=== PATIENT | female | born 1975 | race Caucasian/White ===

== ENCOUNTER 2017-12-18 10:29 | Inpatient (IN) | payer OTHER ==
[~2017-12-18 10:29] MED LIST: Citric Acid/Sodium Citrate Solution 30 ML Cup PO SCH; Morphine PF 1 MG/ML Amp ONE; Octyl 2-Cyanoacrylate 1 Tube ONE; Ondansetron 4 MG/2 ML SDV ONE; Oxytocin 10 Units/1 ML SDV ONE; Oxytocin/0.9 % Sodium Chloride 30 UNIT/500 ML BAG IV SCH; Phenylephrine 1% 10 MG/ML SDV ONE; Sodium Chloride 0.9% 10 ML Syringe FLUSH PRN; Sodium Chloride 0.9% 2.5 ML Syringe FLUSH PRN; ceFAZolin 2 GM in Premix Bag 1 BAG IV ONE
[2017-12-18] MEDS ORDERED: ceFAZolin/Dextrose,Iso-Osmotic 2 GM/50 ML Duplex Bag IV ONE (10:50)
[2017-12-18] MEDS: Lactated Ringers 1,000 ML IV SCH ×2 (11:00→14:27)
--- NOTE | 2017-12-18 11:08 | PCM.PREANE ---
Preanesthetic Assessment - Procedure Proposed Procedure: , repeat; pre-eclamptic and diabetic - Anesthesia/Transfusion/Family Hx Anesthesia History: Prior Anesthesia Without Reaction Family History of Anesthesia Reaction: No Intubation History: Unknown - Review of Systems General: No Symptoms Pulmonary: Cough (sinus congestion, s/p Z-chace just completed (2 wks of URI)) Cardiovascular: Edema, Other (edematous LEs ) Neurological: Difficulty Walking ( and swollen legs) Other: Reports: Anxiety - Physical Assessment NPO Status Date: 12/18/17 NPO Status Time: 05:00 Height: 5 ft 3 in Weight: 199 lb ASA Class: 3E Mental Status: Alert & Oriented x3 Airway Class: Mallampati = 2 Dentition: Reports: Normal Dentition Thyro-Mental Finger Breadths: 3 Mouth Opening Finger Breadths: 3 ROM/Head Extension: Full Lungs: Clear to Auscultation, Normal Respiratory Effort Cardiovascular: Regular Rate, Regular Rhythm, No Murmurs - Lab Values: Laboratory Last Values WBC 7.37 K/uL (4.0-11.0) 12/18/17 10:50 RBC 4.15 M/uL (4.30-5.90) L 12/18/17 10:50 Hgb 11.7 g/dL (12.0-16.0) L 12/18/17 10:50 Hct 34.4 % (36.0-46.0) L 12/18/17 10:50 MCV 82.9 fL (80.0-98.0) 12/18/17 10:50 MCH 28.2 pg (27.0-32.0) 12/18/17 10:50 MCHC 34.0 g/dL (31.0-37.0) 12/18/17 10:50 RDW Std Deviation 43.5 fl (28.0-62.0) 12/18/17 10:50 RDW Coeff of Cassie 14 % (11.0-15.0) 12/18/17 10:50 Plt Count 197 K/uL (150-400) 12/18/17 10:50 MPV 10.60 fL (7.40-12.00) 12/18/17 10:50 Nucleated RBC % 0.0 /100WBC 12/18/17 10:50 Nucleated RBCs # 0 K/uL 12/18/17 10:50 - Allergies Allergies/Adverse Reactions: Allergies Allergy/AdvReac Type Severity Reaction Status Date / Time adhesive tape Allergy Blisters Verified 12/18/17 10:21 - Blood Blood Available: No Product(s) Available: PRBC (T and S) - Anesthesia Plan Pre-Op Medication Ordered: Antacids - Acknowledgements Anesthesia Type Planned: Spinal (discussed possible general) Pt an Appropriate Candidate for the Planned Anesthesia: Yes Alternatives and Risks of Anesthesia Discussed w Pt/Guardian: Yes Pt/Guardian Understands and Agrees with Anesthesia Plan: Yes PreAnesthesia Questionnaire Cardiovascular History: Reports: High Cholesterol, Other (See Below) Other Cardiovascular History: gestational hypertension 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: Endocrine/Metabolic History: Reports: Diabetes, Gestational - Past Surgical History Cardiovascular Surgical History: Reports: None Neurological Surgical History: Reports: None - CURRENT (IN HOUSE) MEDS Current Meds: Current Medications Citric Acid/Sodium Citrate (Bicitra Solution) 30 ml PO .ONCE ANGIE Last Admin: 12/18/17 11:00 Dose: 30 ml Lactated Ringer's (Ringers, Lactated) 1,000 mls @ 500 mls/hr IV .BOLUS ANGIE Last Admin: 12/18/17 11:00 Dose: 500 mls/hr Oxytocin/Sodium Chloride (Oxytocin 30 Unit/500 Ml-Ns) 30 unit in 500 mls @ 250 mls/hr IV TITRATE ANGIE Sodium Chloride (Saline Flush) 10 ml FLUSH ASDIRECTED PRN PRN Reason: Keep Vein Open Sodium Chloride (Saline Flush) 2.5 ml FLUSH ASDIRECTED PRN PRN Reason: Keep Vein Open Discontinued Medications Cefazolin Sodium/Dextrose (Ancef) Confirm Administered Dose 2 gm IV .STK-MED ONE Stop: 12/18/17 10:51 Cefazolin Sodium/Dextrose 2 gm (/ Premix) 50 mls @ 100 mls/hr IV ONETIME ONE Stop: 12/18/17 10:42 Morphine Sulfate (Duramorph Pf) Confirm Administered Dose 1 mg .ROUTE .STK-MED ONE Stop: 12/18/17 10:20 Octyl Cyanoacrylate (Dermabond Advance) Confirm Administered Dose 1 applic .ROUTE .STK-MED ONE Stop: 12/18/17 10:22 Ondansetron HCl (Zofran) Confirm Administered Dose 4 mg .ROUTE .STK-MED ONE Stop: 12/18/17 10:22 Oxytocin (Pitocin) Confirm Administered Dose 20 unit .ROUTE .STK-MED ONE Stop: 12/18/17 10:20 Phenylephrine HCl (Octavio-Synephrine) Confirm Administered Dose 10 mg .ROUTE .STK- MED ONE Stop: 12/18/17 10:20
[2017-12-18 11:39] LABS: CHLORIDE,CL 102 mmol/L (98-107); SODIUM,NA 136 mmol/L (136-145)
[2017-12-18] MEDS ORDERED: Propofol 200 MG/20 ML SDV ONE (12:13)
[2017-12-18] MEDS ORDERED: Nalbuphine 10 MG/1 ML Vial IVPUSH PRN (12:20)
[2017-12-18] MEDS ORDERED: Naloxone 0.4 MG/ML Syringe IVPUSH PRN (12:20)
[2017-12-18] MEDS ORDERED: diphenhydrAMINE 50 MG/ML SDV IVPUSH PRN ×2 (12:20→12:51)
[2017-12-18] MEDS ORDERED: Oxytocin 10 Units/1 ML SDV ONE (12:41)
[2017-12-18] MEDS ORDERED: Sodium Chloride 0.9% 2.5 ML Syringe FLUSH PRN (12:51)
[2017-12-18] MEDS ORDERED: Ondansetron 4 MG/2 ML SDV IV PRN (12:51)
[2017-12-18] MEDS ORDERED: Bisacodyl 10 MG Supp RECTAL PRN (12:51)
[2017-12-18] MEDS ORDERED: Sodium Chloride 0.9% 10 ML Syringe FLUSH PRN (12:51)
[2017-12-18] MEDS ORDERED: Labetalol 100 MG/20 ML MDV IVPUSH PRN (12:51)
[2017-12-18] MEDS ORDERED: Lanolin 100% Cream 7 GM Tube TOP PRN (12:51)
[2017-12-18] MEDS ORDERED: Ibuprofen 800 MG Tab PO PRN (12:51)
[2017-12-18] MEDS ORDERED: Aluminum Hydroxide/Magnesium Hydroxide/Simethicone Susp 30 ML Cup PO PRN (12:51)
[2017-12-18] MEDS ORDERED: Magnesium Sulfate/Water 4 GM in Premix Bag 1 BAG IV ONE (12:51)
[2017-12-18] MEDS ORDERED: Calcium Gluconate 10% 1 GM/10 ML SDV IV PRN (12:51)
[2017-12-18] MEDS ORDERED: Simethicone 80 MG Tab.Chew PO PRN (12:51)
[2017-12-18] MEDS ORDERED: Magnesium Sulfate/Water 40 GM/1,000 ML BAG IV SCH (13:00)
--- NOTE | 2017-12-18 13:17 | PCM.OPNOTE ---
- General Post-Op/Procedure Note Date of Surgery/Procedure: 12/18/17 Operative Procedure(s): Repeat LTCS. Bilateral salpingectomy Findings: Viable female AGPARs, 9, 9 weight 3460 gm. Intact placenta with 3 V cord, significant uterovesical adhesions. left paratubal cyst Pre Op Diagnosis: 37 week IUP. Severe gestational hypertension. Previous c section, desires repeat. Undesired fertility Post-Op Diagnosis: Same Anesthesia Technique: Spinal Primary Surgeon: Sarah Alcantara Pathology: placenta, fallopian tubes, left paratubal cyst Fluid Replacement, Intraop: 2,000 EBL in mLs: 800 Complications: none known Condition: Good Free Text/Narrative:: Intake & Output 12/17/17 12/18/17 12/18/17 22:59 06:59 14:59 Output Total 250 Balance -250 Dictation [id number]
[2017-12-18] MEDS: fentaNYL 100 MCG/2 ML SDV IVPUSH PRN ×3 (13:22→19:42)
--- NOTE | 2017-12-18 13:34 | PCM.POSTAN ---
POST ANESTHESIA ASSESSMENT - MENTAL STATUS Mental Status: Alert, Oriented - VITAL SIGNS Pulse Rate: 48 SaO2: 100 (2 l/m) Resp Rate: 11 Blood Pressure: 145/63 - RESPIRATORY Respiratory Status: Respiratory Rate WNL, Airway Patent, O2 Saturation Stable - CARDIOVASCULAR CV Status: Pulse Rate WNL, Blood Pressure Stable - GASTROINTESTINAL GI Status: No Symptoms - PAIN Pain Score: 4 (some narcotic used ) - POST OP HYDRATION Hydration Status: Adequate & Stable - OBSERVATIONS Free Text/Narrative:: see neuroaxis orders. Per surgeon - will give Mg for 24 hours.
--- NOTE | 2017-12-18 16:24 | PCM48HPAN ---
Post Anesthesia Note - EVALUATION WITHIN 48HRS OF ANESTHETIC Vital Signs in Normal Range: Yes Patient Participated in Evaluation: Yes Respiratory Function Stable: Yes Airway Patent: Yes Cardiovascular Function Stable: Yes Hydration Status Stable: Yes Pain Control Satisfactory: Yes Nausea and Vomiting Control Satisfactory: Yes Mental Status Recovered: Yes Pulse Rate: 48 Resp Rate: 15 Blood Pressure: 145/63
[2017-12-18] MEDS: Docusate Sodium 100 MG Cap PO SCH (21:01)
[2017-12-19] MEDS: fentaNYL 100 MCG/2 ML SDV IVPUSH PRN (01:16)
[2017-12-19] MEDS ORDERED: Acetaminophen 1,000 MG in Premix Bag 1 BAG IV ONE (04:13)
[2017-12-19] MEDS ORDERED: Sodium Chloride 0.65% Nasal Spray 45 ML Bottle NAS PRN (05:07)
[2017-12-19] MEDS ORDERED: Dextrose 5%-Lactated Ringers 1,000 ML IV SCH (06:00)
--- NOTE | 2017-12-19 06:31 | PCM.PNPP ---
- General Info Date of Service: 12/19/17 Admission Dx/Problem (Free Text): 42 yo P3 s/p Tertiary and bilateral salphingectomy Subjective Update: Informed patient had an episode of difficulty in breathing , RR ; 9 , Osaturation in the 80s , however patient informed to take deep breaths Osat 95% , at bedside Osat 98% ( during my evaluation) , RR 10 . Patient complains of stuffy nose and feels the abdominal binder is preventing her from taking deep breathes. abdominal binder. Magnessium held. CXR ordered VSS: BP 120s - 140s/60s - 70s , HR; 80s - 110s U/O: 35 - 90s/ hr , DTR: 2+ Functional Status: Reports: Pain Controlled - Review of Systems General: Reports: No Symptoms HEENT: Reports: No Symptoms Pulmonary: Reports: Shortness of Breath Cardiovascular: Reports: No Symptoms Gastrointestinal: Reports: No Symptoms Genitourinary: Reports: No Symptoms Musculoskeletal: Reports: No Symptoms Skin: Reports: No Symptoms Neurological: Reports: No Symptoms Psychiatric: Reports: No Symptoms - General Info Date of Service: 12/19/17 - Patient Data Vital Signs - Most Recent: Last Vital Signs Temp 37.0 C 12/18/17 19:00 Pulse 110 H 12/19/17 01:00 Resp 14 12/19/17 01:00 BP 130/72 12/19/17 01:00 Pulse Ox 91 L 12/19/17 01:00 Weight - Most Recent: 90.265 kg I&O - Last 24 Hours: Intake & Output 12/18/17 12/18/17 12/19/17 14:59 22:59 06:59 Intake Total 4250 100 Output Total 320 350 Balance 3930 -250 Lab Results - Last 24 Hours: Laboratory Results - last 24 hr 12/18/17 12/18/17 12/18/17 Range/Units 10:50 10:50 10:50 WBC 7.37 (4.0-11.0) K/uL RBC 4.15 L (4.30-5.90) M/uL Hgb 11.7 L (12.0-16.0) g/dL Hct 34.4 L (36.0-46.0) % MCV 82.9 (80.0-98.0) fL MCH 28.2 (27.0-32.0) pg MCHC 34.0 (31.0-37.0) g/dL RDW Std Deviation 43.5 (28.0-62.0) fl RDW Coeff of Cassie 14 (11.0-15.0) % Plt Count 197 (150-400) K/uL MPV 10.60 (7.40-12.00) fL Nucleated RBC % 0.0 /100WBC Nucleated RBCs # 0 K/uL Cord ABG pH (7.18-7.38) Cord ABG Base Excess (-10--2) Cord VBG pH (7.25-7.45) Cord VBG Base Excess (-10--2) Sodium 136 (136-145) mmol/L Potassium 3.8 (3.5-5.1) mmol/L Chloride 102 (98-107) mmol/L Carbon Dioxide 22.3 (21.0-32.0) mmol/L BUN 12 (7.0-18.0) mg/dL Creatinine 0.7 (0.6-1.0) mg/dL Est Cr Clr Drug Dosing 88.37 mL/min Estimated GFR (MDRD) > 60.0 ml/min Glucose 97 (74-106) mg/dL POC Glucose (60-110) mg/dL Calcium 9.2 (8.5-10.1) mg/dL Magnesium (1.5-2.0) mg/dL Total Bilirubin 0.2 (0.2-1.0) mg/dL AST 32 (15-37) IU/L ALT 28 (14-63) IU/L Alkaline Phosphatase 127 H (46-116) U/L Total Protein 6.6 (6.4-8.2) g/dL Albumin 2.7 L (3.4-5.0) g/dL Globulin 3.9 H (2.0-3.5) g/dL Albumin/Globulin Ratio 0.7 L (1.3-2.8) Blood Type A POSITIVE Antibody Screen NEGATIVE 12/18/17 12/18/17 12/18/17 Range/Units 11:04 11:39 19:15 WBC (4.0-11.0) K/uL RBC (4.30-5.90) M/uL Hgb (12.0-16.0) g/dL Hct (36.0-46.0) % MCV (80.0-98.0) fL MCH (27.0-32.0) pg MCHC (31.0-37.0) g/dL RDW Std Deviation (28.0-62.0) fl RDW Coeff of Cassie (11.0-15.0) % Plt Count (150-400) K/uL MPV (7.40-12.00) fL Nucleated RBC % /100WBC Nucleated RBCs # K/uL Cord ABG pH 7.286 (7.18-7.38) Cord ABG Base Excess 0 H (-10--2) Cord VBG pH 7.347 (7.25-7.45) Cord VBG Base Excess 0 H (-10--2) Sodium (136-145) mmol/L Potassium (3.5-5.1) mmol/L Chloride (98-107) mmol/L Carbon Dioxide (21.0-32.0) mmol/L BUN (7.0-18.0) mg/dL Creatinine (0.6-1.0) mg/dL Est Cr Clr Drug Dosing mL/min Estimated GFR (MDRD) ml/min Glucose (74-106) mg/dL POC Glucose 89 (60-110) mg/dL Calcium (8.5-10.1) mg/dL Magnesium 3.9 H (1.5-2.0) mg/dL Total Bilirubin (0.2-1.0) mg/dL AST (15-37) IU/L ALT (14-63) IU/L Alkaline Phosphatase (46-116) U/L Total Protein (6.4-8.2) g/dL Albumin (3.4-5.0) g/dL Globulin (2.0-3.5) g/dL Albumin/Globulin Ratio (1.3-2.8) Blood Type Antibody Screen 12/19/17 Range/Units 01:08 WBC (4.0-11.0) K/uL RBC (4.30-5.90) M/uL Hgb (12.0-16.0) g/dL Hct (36.0-46.0) % MCV (80.0-98.0) fL MCH (27.0-32.0) pg MCHC (31.0-37.0) g/dL RDW Std Deviation (28.0-62.0) fl RDW Coeff of Cassie (11.0-15.0) % Plt Count (150-400) K/uL MPV (7.40-12.00) fL Nucleated RBC % /100WBC Nucleated RBCs # K/uL Cord ABG pH (7.18-7.38) Cord ABG Base Excess (-10--2) Cord VBG pH (7.25-7.45) Cord VBG Base Excess (-10--2) Sodium (136-145) mmol/L Potassium (3.5-5.1) mmol/L Chloride (98-107) mmol/L Carbon Dioxide (21.0-32.0) mmol/L BUN (7.0-18.0) mg/dL Creatinine (0.6-1.0) mg/dL Est Cr Clr Drug Dosing mL/min Estimated GFR (MDRD) ml/min Glucose (74-106) mg/dL POC Glucose (60-110) mg/dL Calcium (8.5-10.1) mg/dL Magnesium 4.5 H (1.5-2.0) mg/dL Total Bilirubin (0.2-1.0) mg/dL AST (15-37) IU/L ALT (14-63) IU/L Alkaline Phosphatase (46-116) U/L Total Protein (6.4-8.2) g/dL Albumin (3.4-5.0) g/dL Globulin (2.0-3.5) g/dL Albumin/Globulin Ratio (1.3-2.8) Blood Type Antibody Screen Med Orders - Current: Current Medications Al Hydroxide/Mg Hydroxide (Mag-Al Plus) 30 ml PO Q8H PRN PRN Reason: Heartburn Bisacodyl (Dulcolax) 10 mg RECTAL .ONCE PRN PRN Reason: Constipation Calcium Gluconate (Calcium Gluconate) 1 gm IV ASDIRECTED PRN PRN Reason: respiratory distress Citric Acid/Sodium Citrate (Bicitra Solution) 30 ml PO .ONCE ANGIE Last Admin: 12/18/17 11:00 Dose: 30 ml Diphenhydramine HCl (Benadryl) 25 - 50 mg IVPUSH Q4H PRN PRN Reason: Itching Stop: 12/19/17 12:20 Diphenhydramine HCl (Benadryl) 25 mg IVPUSH Q6H PRN PRN Reason: Itching or Nausea Docusate Sodium (Colace) 100 mg PO BID ANGIE Last Admin: 12/18/17 21:01 Dose: 100 mg Emollient Ointment (Lansinoh Hpa) 0 gm TOP ASDIRECTED PRN PRN Reason: Sore Nipples Last Admin: 12/18/17 16:40 Dose: 1 applic Fentanyl (Sublimaze) 50 - 100 mcg IVPUSH Q30M PRN PRN Reason: Breakthrough Pain Stop: 12/19/17 12:16 Last Admin: 12/19/17 01:16 Dose: 50 mcg Lactated Ringer's (Ringers, Lactated) 1,000 mls @ 500 mls/hr IV .BOLUS ANGIE Last Admin: 12/18/17 14:27 Dose: 500 mls/hr Oxytocin/Sodium Chloride (Oxytocin 30 Unit/500 Ml-Ns) 30 unit in 500 mls @ 250 mls/hr IV TITRATE ANGIE Magnesium Sulfate (Magnesium Sulfate 40 Gm In Water 1000 Ml) 40 gm in 1,000 mls @ 50 mls/hr IV ASDIRECTED [facility]; Protocol Last Admin: 12/18/17 14:44 Dose: 2 gm/hr, 50 mls/hr Dextrose/Lactated Ringer's (Dextrose 5%-Lactated Ringers) 1,000 mls @ 100 mls/ hr IV ASDIRECTED [facility] Last Admin: 12/19/17 06:14 Dose: 100 mls/hr Ibuprofen (Motrin) 800 mg PO Q8H PRN PRN Reason: mild pain or fever Labetalol HCl (Normodyne) 20 mg IVPUSH Q10M PRN; Protocol PRN Reason: Hypertension Nalbuphine HCl (Nubain) 2.5 - 10 mg IVPUSH Q3H PRN PRN Reason: Pruritis Stop: 12/19/17 12:20 Naloxone HCl (Narcan) 0.1 mg IVPUSH ONETIME PRN PRN Reason: Respiratory Depression Stop: 12/19/17 12:20 Ondansetron HCl (Zofran) 4 mg IV Q4H PRN PRN Reason: Nausea/Vomiting Oxycodone/Acetaminophen (Percocet 325-5 Mg) 1 - 2 tab PO Q4H PRN PRN Reason: Breakthrough Pain Stop: 12/19/17 12:30 Simethicone (Simethicone) 80 mg PO Q4H PRN PRN Reason: Gas Sodium Chloride (Saline Flush) 10 ml FLUSH ASDIRECTED PRN PRN Reason: Keep Vein Open Sodium Chloride (Saline Flush) 2.5 ml FLUSH ASDIRECTED PRN PRN Reason: Keep Vein Open Sodium Chloride (Saline Flush) 10 ml FLUSH ASDIRECTED PRN PRN Reason: Keep Vein Open Sodium Chloride (Saline Flush) 2.5 ml FLUSH ASDIRECTED PRN PRN Reason: Keep Vein Open Sodium Chloride (Ness Nasal [place]) 1 ml RADHA Q2H PRN PRN Reason: Congestion Last Admin: 12/19/17 06:07 Dose: 1 ml Discontinued Medications Cefazolin Sodium/Dextrose (Ancef) Confirm Administered Dose 2 gm IV .STK-MED ONE Stop: 12/18/17 10:51 Cefazolin Sodium/Dextrose 2 gm (/ Premix) 50 mls @ 100 mls/hr IV ONETIME ONE Stop: 12/18/17 10:42 Last Admin: 12/18/17 15:35 Dose: Not Given Magnesium Sulfate 4 gm/ Premix 100 mls @ 300 mls/hr IV .BOLUS ONE Stop: 12/18/17 13:10 Last Admin: 12/18/17 14:27 Dose: 400 mls/hr Acetaminophen 1,000 mg/ Premix 100 mls @ 400 mls/hr IV NOW ONE Stop: 12/19/17 04:27 Last Admin: 12/19/17 04:50 Dose: 400 mls/hr Morphine Sulfate (Duramorph Pf) Confirm Administered Dose 1 mg .ROUTE .STK-MED ONE Stop: 12/18/17 10:20 Octyl Cyanoacrylate (Dermabond Advance) Confirm Administered Dose 1 applic .ROUTE .STK-MED ONE Stop: 12/18/17 10:22 Ondansetron HCl (Zofran) Confirm Administered Dose 4 mg .ROUTE .STK-MED ONE Stop: 12/18/17 10:22 Oxytocin (Pitocin) Confirm Administered Dose 20 unit .ROUTE .STK-MED ONE Stop: 12/18/17 10:20 Oxytocin (Pitocin) Confirm Administered Dose 20 unit .ROUTE .STK-MED ONE Stop: 12/18/17 12:42 Phenylephrine HCl (Octavio-Synephrine) Confirm Administered Dose 10 mg .ROUTE .STK- MED ONE Stop: 12/18/17 10:20 Propofol (Diprivan 20 Ml) Confirm Administered Dose 200 mg .ROUTE .STK-MED ONE Stop: 12/18/17 12:14 - Infant Interaction Disposition, : [place] to Nursery - Recovery Exam Fundal Tone: Firm Fundal Level: 1 Fingerbreadths Above Umbilicus Fundal Placement: Midline Lochia Amount: Scant Lochia Color: Rubra/Red Perineum Description: Intact, Minimal Bruising/Swelling Episiotomy/Laceration: None Bladder Status: Indwelling Catheter in Place Urinary Elimination: Indwelling Catheter - Exam General: Alert, Oriented HEENT: Pupils Equal Neck: Supple Lungs: Clear to Auscultation Cardiovascular: Regular Rate, Regular Rhythm GI/Abdominal Exam: Normal Bowel Sounds Extremities: Normal Inspection Wound/Incisions: Other (pfannestiel skin incision with dressing in place , 11/22 stained , will change this AM ) Psy/Mental Status: Alert - Problem List & Annotations (1) delivery delivered SNOMED Code(s): 155143547 Code(s): O82 - ENCOUNTER FOR DELIVERY WITHOUT INDICATION Status: Acute Current Visit: Yes - Problem List Review Problem List Initiated/Reviewed/Updated: Yes - My Orders Last 24 Hours: My Active Orders 12/19/17 03:43 Chest 2V [CR] Stat 12/19/17 05:07 Sodium Chloride 0.65% [Ness Nasal [place]] 1 ml RADHA Q2H PRN 12/19/17 06:00 Dextrose 5%-Lactated Ringers 1,000 ml IV ASDIRECTED - Assessment Assessment:: 42 yo P3 s/p tertiary , SOB - resolved now , VSS - wnl , normal lochia - Plan Plan:: IVF D/5 LR at 100cc/hr Pain control as needed CBC / BMP this am Monitor vital signs Follow chest xray results Clear diet this am D/C magnessium for now
[2017-12-19] MEDS: Acetaminophen/oxyCODONE 325-5 MG Tab PO PRN ×3 (06:43→20:23)
[2017-12-19] MEDS: Levothyroxine 25 MCG Tab PO SCH (08:08)
[2017-12-19] MEDS: Docusate Sodium 100 MG Cap PO SCH ×2 (09:08→20:22)
[2017-12-19] MEDS ORDERED: Acetaminophen/oxyCODONE 325-5 MG Tab PO PRN (15:07)
[2017-12-19] MEDS ORDERED: Acetaminophen 325 MG Tab PO PRN (15:12)
[2017-12-20] MEDS ORDERED: Acetaminophen/oxyCODONE 325-5 MG Tab PO SCH
[2017-12-20] MEDS: Acetaminophen/oxyCODONE 325-5 MG Tab PO PRN ×3 (04:35→13:21)
[2017-12-20] MEDS: Levothyroxine 25 MCG Tab PO SCH (07:31)
[2017-12-20] MEDS: Docusate Sodium 100 MG Cap PO SCH (08:57)
--- NOTE | 2017-12-20 11:20 | PCM.PNPP ---
- General Info Date of Service: 12/20/17 Admission Dx/Problem (Free Text): 42 yo P3 s/p Tertiary and bilateral salphingectomy, with Gestational HTN s/p magnessium for approx 12 hrs Subjective Update: Patient seen at bedside Bps 130s/70s- 80s , denies headache , BV , RUQ pain . She wants to go home she states she have a BP monitor at home and her last preclampsia happens after 5 days. she also states her sister that is a nurse is going into town. she feel very well and will call the hospital if she takes her BP and the range is high. She understands the warning signs of preclampsia and will alert us if anything happens Functional Status: Reports: Pain Controlled, Tolerating Diet, Ambulating, Urinating - Review of Systems General: Reports: No Symptoms HEENT: Reports: No Symptoms Pulmonary: Reports: No Symptoms Cardiovascular: Reports: No Symptoms Gastrointestinal: Reports: No Symptoms Genitourinary: Reports: No Symptoms Musculoskeletal: Reports: No Symptoms Skin: Reports: No Symptoms Neurological: Reports: No Symptoms Psychiatric: Reports: No Symptoms - General Info Date of Service: 12/20/17 - Patient Data Vital Signs - Most Recent: Last Vital Signs Temp 36.1 C 12/20/17 08:00 Pulse 88 12/20/17 08:00 Resp 14 12/20/17 08:00 BP 138/67 12/20/17 08:00 Pulse Ox 97 12/20/17 08:00 Weight - Most Recent: 90.265 kg Med Orders - Current: Current Medications Acetaminophen (Tylenol) 650 mg PO Q6H PRN PRN Reason: Pain (moderate 4-6) Al Hydroxide/Mg Hydroxide (Mag-Al Plus) 30 ml PO Q8H PRN PRN Reason: Heartburn Bisacodyl (Dulcolax) 10 mg RECTAL .ONCE PRN PRN Reason: Constipation Calcium Gluconate (Calcium Gluconate) 1 gm IV ASDIRECTED PRN PRN Reason: respiratory distress Citric Acid/Sodium Citrate (Bicitra Solution) 30 ml PO .ONCE ANGIE Last Admin: 12/18/17 11:00 Dose: 30 ml Diphenhydramine HCl (Benadryl) 25 mg IVPUSH Q6H PRN PRN Reason: Itching or Nausea Docusate Sodium (Colace) 100 mg PO BID ANGIE Last Admin: 12/20/17 08:57 Dose: 100 mg Emollient Ointment (Lansinoh Hpa) 0 gm TOP ASDIRECTED PRN PRN Reason: Sore Nipples Last Admin: 12/18/17 16:40 Dose: 1 applic Lactated Ringer's (Ringers, Lactated) 1,000 mls @ 500 mls/hr IV .BOLUS [facility] Last Admin: 12/18/17 14:27 Dose: 500 mls/hr Oxytocin/Sodium Chloride (Oxytocin 30 Unit/500 Ml-Ns) 30 unit in 500 mls @ 250 mls/hr IV TITRATE [facility] Magnesium Sulfate (Magnesium Sulfate 40 Gm In Water 1000 Ml) 40 gm in 1,000 mls @ 50 mls/hr IV ASDIRECTED [facility]; Protocol Last Admin: 12/18/17 14:44 Dose: 2 gm/hr, 50 mls/hr Dextrose/Lactated Ringer's (Dextrose 5%-Lactated Ringers) 1,000 mls @ 100 mls/ hr IV ASDIRECTED [facility] Last Admin: 12/19/17 06:14 Dose: 100 mls/hr Ibuprofen (Motrin) 800 mg PO Q8H PRN PRN Reason: mild pain or fever Last Admin: 12/19/17 16:27 Dose: 800 mg Labetalol HCl (Normodyne) 20 mg IVPUSH Q10M PRN; Protocol PRN Reason: Hypertension Levothyroxine Sodium (Levothyroxine) 25 mcg PO ACBREAKFAST [facility] Last Admin: 12/20/17 07:31 Dose: 25 mcg Ondansetron HCl (Zofran) 4 mg IV Q4H PRN PRN Reason: Nausea/Vomiting Oxycodone/Acetaminophen (Percocet 325-5 Mg) 1 tab PO Q4H PRN PRN Reason: Pain (moderate 4-6) Last Admin: 12/19/17 15:31 Dose: 1 tab Oxycodone/Acetaminophen (Percocet 325-5 Mg) 2 tab PO Q4H PRN PRN Reason: Pain (severe 7-10) Last Admin: 12/20/17 08:58 Dose: 2 tab Simethicone (Simethicone) 80 mg PO Q4H PRN PRN Reason: Gas Sodium Chloride (Saline Flush) 10 ml FLUSH ASDIRECTED PRN PRN Reason: Keep Vein Open Sodium Chloride (Saline Flush) 2.5 ml FLUSH ASDIRECTED PRN PRN Reason: Keep Vein Open Sodium Chloride (Saline Flush) 10 ml FLUSH ASDIRECTED PRN PRN Reason: Keep Vein Open Sodium Chloride (Saline Flush) 2.5 ml FLUSH ASDIRECTED PRN PRN Reason: Keep Vein Open Sodium Chloride ([place] Nasal [place]) 1 ml RADHA Q2H PRN PRN Reason: Congestion Last Admin: 12/19/17 06:07 Dose: 1 ml Discontinued Medications Cefazolin Sodium/Dextrose (Ancef) Confirm Administered Dose 2 gm IV .STK-MED ONE Stop: 12/18/17 10:51 Diphenhydramine HCl (Benadryl) 25 - 50 mg IVPUSH Q4H PRN PRN Reason: Itching Stop: 12/19/17 12:20 Fentanyl (Sublimaze) 50 - 100 mcg IVPUSH Q30M PRN PRN Reason: Breakthrough Pain Stop: 12/19/17 12:16 Last Admin: 12/19/17 01:16 Dose: 50 mcg Cefazolin Sodium/Dextrose 2 gm (/ Premix) 50 mls @ 100 mls/hr IV ONETIME ONE Stop: 12/18/17 10:42 Last Admin: 12/18/17 15:35 Dose: Not Given Magnesium Sulfate 4 gm/ Premix 100 mls @ 300 mls/hr IV .BOLUS ONE Stop: 12/18/17 13:10 Last Admin: 12/18/17 14:27 Dose: 400 mls/hr Acetaminophen 1,000 mg/ Premix 100 mls @ 400 mls/hr IV NOW ONE Stop: 12/19/17 04:27 Last Admin: 12/19/17 04:50 Dose: 400 mls/hr Morphine Sulfate (Duramorph Pf) Confirm Administered Dose 1 mg .ROUTE .STK-MED ONE Stop: 12/18/17 10:20 Nalbuphine HCl (Nubain) 2.5 - 10 mg IVPUSH Q3H PRN PRN Reason: Pruritis Stop: 12/19/17 12:20 Naloxone HCl (Narcan) 0.1 mg IVPUSH ONETIME PRN PRN Reason: Respiratory Depression Stop: 12/19/17 12:20 Octyl Cyanoacrylate (Dermabond Advance) Confirm Administered Dose 1 applic .ROUTE .STK-MED ONE Stop: 12/18/17 10:22 Ondansetron HCl (Zofran) Confirm Administered Dose 4 mg .ROUTE .STK-MED ONE Stop: 12/18/17 10:22 Oxycodone/Acetaminophen (Percocet 325-5 Mg) 1 - 2 tab PO Q4H PRN PRN Reason: Breakthrough Pain Stop: 12/19/17 12:30 Last Admin: 12/19/17 11:06 Dose: 1 tab Oxytocin (Pitocin) Confirm Administered Dose 20 unit .ROUTE .STK-MED ONE Stop: 12/18/17 10:20 Oxytocin (Pitocin) Confirm Administered Dose 20 unit .ROUTE .STK-MED ONE Stop: 12/18/17 12:42 Phenylephrine HCl (Octavio-Synephrine) Confirm Administered Dose 10 mg .ROUTE .STK- MED ONE Stop: 12/18/17 10:20 Propofol (Diprivan 20 Ml) Confirm Administered Dose 200 mg .ROUTE .STK-MED ONE Stop: 12/18/17 12:14 - Infant Interaction Infant Disposition, : [place] to Nursery - Recovery Exam Fundal Tone: Firm Fundal Level: 1 Fingerbreadths Below Umbilicus Fundal Placement: Midline Lochia Amount: Scant Lochia Color: Rubra/Red Perineum Description: Intact, Minimal Bruising/Swelling Episiotomy/Laceration: None Bladder Status: Nonpalpable, Voiding Urinary Elimination: Indwelling Catheter - Exam General: Alert, Oriented HEENT: Pupils Equal Neck: Supple Lungs: Clear to Auscultation Cardiovascular: Regular Rate, Regular Rhythm GI/Abdominal Exam: Normal Bowel Sounds Extremities: Normal Inspection Skin: Other Wound/Incisions: Healing Well (Pfannestiel skin incision c/di ) Neurological: No New Focal Deficit Psy/Mental Status: Alert - Problem List & Annotations (1) delivery delivered SNOMED Code(s): 017009907 Code(s): O82 - ENCOUNTER FOR DELIVERY WITHOUT INDICATION Status: Acute Current Visit: Yes - Problem List Review Problem List Initiated/Reviewed/Updated: Yes - My Orders Last 24 Hours: My Active Orders 12/19/17 15:07 Acetaminophen/oxyCODONE [Percocet 325-5 MG] 1 tab PO Q4H PRN 12/19/17 15:12 Acetaminophen [Tylenol] 650 mg PO Q6H PRN 12/19/17 19:38 Acetaminophen/oxyCODONE [Percocet 325-5 MG] 2 tab PO Q4H PRN 12/19/17 Lunch Regular Diet [DIET] - Assessment Assessment:: 42 yo P3 s/p tertiary , salphingection , gestational HTN stable , Normal lochia , - Plan Plan:: Discharge home today as per patients request Pain control with Mortin/ Percocet Monitor BPs at home every 8 hrs If elevated BP 150/105 please call L& D
--- NOTE | 2017-12-21 06:26 | OR ---
SURGEON: Sarah Alcantara M.D. DATE OF PROCEDURE: 12/08/2017 PREOPERATIVE DIAGNOSES: 1. 37 weeks intrauterine . 2. Severe gestational hypertension. 3. Previous section, desires repeat. 4. Undesired fertility. POSTOPERATIVE DIAGNOSES: 1. 37 weeks intrauterine . 2. Severe gestational hypertension. 3. Previous section, desires repeat. 4. Undesired fertility. PROCEDURES: Repeat low-transverse section with bilateral salpingectomy. ANESTHESIA: Spinal. ESTIMATED BLOOD LOSS: 800 mL. FLUIDS: 2000 mL crystalloid. COMPLICATIONS: None known. FINDINGS: Viable female. score 9 at 1 minute, 9 at 5 minutes. Weight of 3450 g. Intact placenta, 3-vessel cord. Normal-appearing bilateral fallopian tubes. Left paratubal cyst. Significant uterovesical adhesions noted. DISPOSITION: The patient to PACU for magnesium recovery. Infant nursery. PROCEDURE IN DETAIL: Sabiha is a 42-year-old, G3, P2 at 37 weeks gestational age, who presents to clinic this morning after being evaluated in Labor and Delivery last night and found to be hypertensive. In the clinic today, her blood pressure was 162/88. She does have a headache, she does have a history of preeclampsia. has been complicated by advanced maternal age, polyhydramnios, gestational diabetes, and now developing gestational hypertension. Given term gestation and history of preeclampsia with significant rise in her blood pressure over the past week, I feel it is best to proceed with delivery. The patient is in agreement. Risks of section have been discussed with her. Proper consent obtained. The patient no longer desires fertility. She has signed consent for bilateral salpingectomy. This request has been approved by the [facility] ethics committee The patient was taken to the operating room, where she underwent a spinal anesthetic, was placed in the dorsal supine position with left tilt. SCDs to lower extremities. [place] to gravity. She was prepped and draped in usual sterile fashion. She received Ancef 2 g prophylactically. After being prepped and draped in the usual sterile fashion, anesthesia was tested found be adequate. Time-out had been performed. A previous Pfannenstiel skin incision was performed, incision carried down level of the rectus fascia, which was incised in the midline and lateralized on either side sharply and bluntly. The superior aspect of fascia was tented upward, dissected sharply and bluntly from underlying muscles. In a similar fashion, this was performed with the inferior aspect of fascia of rectus muscle in midline. Peritoneum was entered and the retroperitoneum was lateralized bluntly to a degree, but there was significant uterovesical adhesions, therefore sharp adhesiolysis was performed. I was able to palpate the uterine and position at this juncture. Self-retaining retractor gently placed. There were still significant amount of uterovesical adhesions, these were lysed sharply and bladder was ultimately able to be mobilized away from the lower uterine segment. There was quite a bit of raw adhesed surface area with this mobility. Low-transverse hysterotomy was now performed. Uterine cavity was entered with the blunt end of the scalpel. Uterine hysterotomy was lateralized. The head flexed and delivered from the pelvis. Fundal pressure was applied. The head was delivered followed by anterior shoulder, posterior shoulder, remaining body without difficulty. There was a nuchal cord present that was reduced manually. The infant's oropharynx and nares bulb suctioned. Cord clamped x2 and cut. Infant was handed off to attending physician Dr. Aponte. Cord arterial, cord venous, cord blood samples obtained. Placenta was now delivered. Uterine cavity was cleared of all blood clot and debris. Hysterotomy was repaired using 0 Vicryl in a continuous running fashion followed by re-imbricating layer. Area of bleeding along the left midline was re- plicated with two [id number] sutures. Hemostasis thereafter improved. There was still raw surface area along the posterior aspect of the bladder in the anterior lower uterine segment. Pressure was placed on this region and attention was now turned to performing the bilateral salpingectomy. The left fallopian tube was able to be isolated with Rudy clamp. There was quite a bit of ovarian tubal adhesions noted and these were gently lysed with cautery. The Harmonic Adams was now utilized to perform salpingectomy on the left side. The specimen will be sent to pathology. There was also a left paratubal cyst noted, this was also removed as well and sent to pathology. The region was well irrigated suction dried. Hemostasis inspected, found to be hemostatic. Attention was now turned to perform the right salpingectomy. Once again, there were tubal ovarian adhesions noted, these were gently lysed using Harmonic Adams. Salpingectomy was once performed once again, however, it is noted at this juncture that the Adams did not seal along the salpingectomy line nearly as well and continued to bleed and have some oozing. Initially I attempted to over-sew the region with a 3-0 chromic on a V20 needle. However, hemostasis was not obtained, therefore used medium-sized vascular clips along this incision line. Hemostasis thereafter evident. This region was well irrigated and suction dried. The uterus was returned to abdominal cavity. The salpingectomy sites were once again inspected and were found to be hemostatic. Attention was now returned to inspecting the hysterotomy. Areas of oozing along the posterior aspect of the bladder were inspected. Small areas of perforating vessels were cauterized. The region of vascularity is oversewn with 2 figure-of - eight sutures using 3-0 chromic on a V20 needle. Hemostasis thereafter much improved, nonetheless given the relatively large surface area of raw tissue, Avitene was placed and tucked in the region of dissection. Hemostasis was achieved. The self-retaining retractor now gently removed. Hysterotomy site once again inspected and found to be hemostatic. Salpingectomy site once again inspected, found to be hemostatic. The rectus muscles now reapproximated using 0 Vicryl in inverted mattress suture technique. Area of bleeding at the base of the rectocele was oversewn with a [id number] using 3-0 chromic on V20 needle. Hemostasis once again evident. The anterior aspect of muscle and posterior of fascia closely inspected. Any areas of oozing were cauterized. The rectus fascia was reapproximated using 0 Vicryl in continuous running fashion beginning laterally on either side and meeting in midline. Subcutaneous tissue was well irrigated, suction dried, and easily cauterized. Skin edges were reapproximated using 3-0 Vicryl on a Adalid needle in subcuticular fashion followed by Dermabond. The uterus remained firm. Sponge, instrument, and needle count was correct x3. The patient has tolerated the procedure well. Overall her initial blood pressures were in the 160 to 170s over 80s to 100. With time, they did slowly decreased to the 120s to 130s over 70s during the procedure and after the spinal anesthetic. We will plan magnesium prophylaxis . All specimens to pathology. MACRINA / DAPHNE /[id number] STEPHANIE
--- NOTE | 2017-12-21 11:01 | CR ---
EXAM DATE: 12/18/17 PATIENT'S AGE: 42 Patient: DICK VILLALOBOS Facility: [place], [place] Site . Site : [id number] Study: XRay Chest [id number]/31/2018 4:33:10 AM Ordering Physician: Maricruz Smith Final Report: Indication: Chest tightness Technique: Chest 2 views Comparison: None Findings/Impression: Cardiovascular and mediastinum: Heart size and vasculature are normal in caliber and appearance. Mediastinum is within normal limits. Lungs and pleural spaces: An elevated right hemidiaphragm. No consolidation or pleural effusions. Bones and soft tissues: No significant findings. Dictated by Tc Estrella MD @ 12/19/2017 5:08:15 AM Dictated by: Tc Estrella MD @ 12/19/2017 05:08:22 (Electronic Signature) Report Signed by Proxy. STEPHANIE
== END 2017-12-20 14:20 | disposition home or self-care (01) | DRG 766 ==
LOC: MW.OB 10:29
PROVIDERS: ADMIT Obstetrics & Gynecology; ATTEND Obstetrics & Gynecology
PROC: 10D00Z1 Extraction of Products of Conception, Low, Open Approach (ICD-10-PCS; principal; 2017-12-18)
PROC: 0UT70ZZ Resection of Bilateral Fallopian Tubes, Open Approach (ICD-10-PCS; 2017-12-18)
DX: O13.4 Gestational [pregnancy-induced] hypertension without significant proteinuria, complicating childbirth (principal); N83.8 Other noninflammatory disorders of ovary, fallopian tube and broad ligament; Z3A.37 37 weeks gestation of pregnancy; Z37.0 Single live birth
CPT/HCPCS: 36415; 59025; 71046; 71046-26; 80053; 82803; 82962; 83735; 85025; 85027; 86850; 86900; 86901; A9270-GY; J0690; J2274; J2370; J2405; J2590; J2704; J3010; J3475; J7042; J7120

== ENCOUNTER 2017-12-21 07:31 | Observation (INO) | payer OTHER ==
[2017-12-21] MEDS: Labetalol 100 MG Tab PO SCH ×3 (08:23→21:10)
--- NOTE | 2017-12-21 08:56 | PCM.HP ---
H&P History of Present Illness - General Date of Service: 12/21/17 Admit Problem/Dx: Admission Diagnosis/Problem Admission Diagnosis/Problem Preeclampsia in period Source of Information: Patient History Limitations: Reports: No Limitations - History of Present Illness Initial Comments - Free Text/Narative: 42 yo P3 s/p tertiary and salphingectomy , with gestational hypertension severe. she received aprrox 12 hrs of magnessium. She had SOB on magnessium so magnessium was discontinued. Patient requested to be discharged early because her BP was normal and normally she has preclampsia 5 days after delivery. she said she had BP monitor at home and will check the BP and call if it was abnormal . patient called and stated her BP was 150s/90s. she denied headache , BV RUQ pain. BP on discharge was 120s- 130s/ 60- 80s. Onset of Symptoms: Reports: Today - Related Data Allergies/Adverse Reactions: Allergies Allergy/AdvReac Type Severity Reaction Status Date / Time adhesive tape Allergy Blisters Verified 12/18/17 10:21 Past Medical History Cardiovascular History: Reports: High Cholesterol, Other (See Below) Other Cardiovascular History: gestational hypertension [employer] History: Reports: Endocrine/Metabolic History: Reports: Diabetes, Gestational - Past Surgical History Cardiovascular Surgical History: Reports: None Neurological Surgical History: Reports: None H&P Review of Systems - Review of Systems: Review Of Systems: See Below General: Reports: No Symptoms HEENT: Reports: No Symptoms Pulmonary: Reports: No Symptoms Cardiovascular: Reports: No Symptoms Gastrointestinal: Reports: No Symptoms Genitourinary: Reports: No Symptoms Musculoskeletal: Reports: No Symptoms Skin: Reports: No Symptoms Psychiatric: Reports: No Symptoms Neurological: Reports: No Symptoms Hematologic/Lymphatic: Reports: No Symptoms Immunologic: Reports: No Symptoms Exam - Exam Exam: See Below - Vital Signs Vital Signs: Last Vital Signs Temp 36.9 C 12/21/17 07:45 Pulse 99 12/21/17 08:23 Resp 16 12/21/17 08:15 BP 150/80 H 12/21/17 08:23 Pulse Ox 95 12/21/17 07:45 - Exam General: Alert, Oriented Neck: Supple Lungs: Clear to Auscultation Cardiovascular: Regular Rate, Regular Rhythm GI/Abdominal Exam: Normal Bowel Sounds (pfannestiel skin incision c/d/i ) (Female) Exam: Normal External Exam Rectal (Female) Exam: Normal Exam Back Exam: Normal Inspection - Patient Data Lab Results Last 24 hrs: Laboratory Results - last 24 hr 12/21/17 Range/Units 08:33 WBC 7.27 (4.0-11.0) K/uL RBC 3.33 L (4.30-5.90) M/uL Hgb 9.4 L (12.0-16.0) g/dL Hct 28.0 L (36.0-46.0) % MCV 84.1 (80.0-98.0) fL MCH 28.2 (27.0-32.0) pg MCHC 33.6 (31.0-37.0) g/dL RDW Std Deviation 44.1 (28.0-62.0) fl RDW Coeff of Cassie 14 (11.0-15.0) % Plt Count 238 (150-400) K/uL MPV 9.30 (7.40-12.00) fL Nucleated RBC % 0.0 /100WBC Nucleated RBCs # 0 K/uL Result Diagrams: 12/21/17 08:33 - Problem List (1) Pre-eclampsia, SNOMED Code(s): 534179545, 013243528 ICD Code: O14.95 - UNSPECIFIED PRE-ECLAMPSIA, COMPLICATING THE PUERPERIUM Status: Acute Current Visit: Yes (2) delivery delivered SNOMED Code(s): 122657854 ICD Code: O82 - ENCOUNTER FOR DELIVERY WITHOUT INDICATION Status: Acute Current Visit: No Problem List Initiated/Reviewed/Updated: Yes Orders Last 24hrs: Active Orders 24 hr Category Date Time Status Patient Status [ADT] Routine ADT 12/21/17 08:12 Active Antiembolic Devices [RC] .Routine Care 12/21/17 08:14 Active Up ad Jenny [RC] ASDIRECTED Care 12/21/17 08:12 Active VTE/DVT Education [RC] PER UNIT ROUTINE Care 12/21/17 08:14 Active Vital Signs [RC] ASDIRECTED Care 12/21/17 08:12 Active Regular Diet [DIET] Diet 12/21/17 Breakfast Active COMPREHENSIVE METABOLIC PN,CMP [CHEM] Urgent Lab 12/21/17 08:33 Received URIC ACID [CHEM] Urgent Lab 12/21/17 08:33 Received Acetaminophen/oxyCODONE [Percocet 325-5 MG] Med 12/21/17 08:18 Active 1 - 2 tab PO Q4H PRN Ibuprofen [Motrin] Med 12/21/17 08:19 Active 800 mg PO Q6H PRN Labetalol [Normodyne] Med 12/21/17 08:16 Active 100 mg PO BID DVT/VTE Prophylaxis Reflex [OM.PC] Routine Oth 12/21/17 08:12 Ordered Medication Orders Ibuprofen (Motrin) 800 mg PO Q6H PRN PRN Reason: Abdominal Pain Labetalol HCl (Normodyne) 100 mg PO BID ANGIE Last Admin: 12/21/17 08:23 Dose: 100 mg Oxycodone/Acetaminophen (Percocet 325-5 Mg) 1 - 2 tab PO Q4H PRN PRN Reason: Abdominal Pain Assessment/Plan Comment:: 42 yo P3 POD3 s/p tertiary with B/L salphingectomy . elevated BPs , preclampsia vs gestational hypertension Now BPs 150s/90s Plan PIH labs Serial BP checks Labetalol 100mg bid Regular diet Venodynes
[2017-12-21 09:19] LABS: CHLORIDE,CL 101 mmol/L (98-107); SODIUM,NA 136 mmol/L (136-145)
[2017-12-21] MEDS: Acetaminophen/oxyCODONE 325-5 MG Tab PO PRN ×4 (10:16→20:05)
[2017-12-21] MEDS ORDERED: Lanolin 100% Cream 7 GM Tube ONE (11:30)
[2017-12-21] MEDS: Ibuprofen 800 MG Tab PO PRN ×2 (15:00→21:14)
--- NOTE | 2017-12-21 17:26 | PCM.SURGPN ---
- General Info Date of Service: 12/21/17 POD#: 3 Functional Status: Reports: Pain Controlled, Tolerating Diet, Urinating - Review of Systems General: Denies: Fever, Weakness Pulmonary: Denies: Shortness of Breath Cardiovascular: Denies: Chest Pain, Palpitations, Lightheadedness Gastrointestinal: Reports: Flatus. Denies: Diarrhea, Nausea, Vomiting Genitourinary: Denies: Flank Pain Skin: Reports: No Symptoms Psychiatric: Reports: No Symptoms - Patient Data Vitals - Most Recent: Last Vital Signs Temp 36.9 C 12/21/17 07:45 Pulse 93 12/21/17 11:45 Resp 16 12/21/17 11:45 BP 150/75 H 12/21/17 11:45 Pulse Ox 95 12/21/17 07:45 Lab Results Last 24 Hrs: Laboratory Results - last 24 hr 12/21/17 12/21/17 12/21/17 Range/Units 08:33 08:33 11:25 WBC 7.27 (4.0-11.0) K/uL RBC 3.33 L (4.30-5.90) M/uL Hgb 9.4 L (12.0-16.0) g/dL Hct 28.0 L (36.0-46.0) % MCV 84.1 (80.0-98.0) fL MCH 28.2 (27.0-32.0) pg MCHC 33.6 (31.0-37.0) g/dL RDW Std Deviation 44.1 (28.0-62.0) fl RDW Coeff of Cassie 14 (11.0-15.0) % Plt Count 238 (150-400) K/uL MPV 9.30 (7.40-12.00) fL Nucleated RBC % 0.0 /100WBC Nucleated RBCs # 0 K/uL Sodium 136 (136-145) mmol/L Potassium 3.7 (3.5-5.1) mmol/L Chloride 101 (98-107) mmol/L Carbon Dioxide 25.4 (21.0-32.0) mmol/L BUN 7 (7.0-18.0) mg/dL Creatinine 0.5 L (0.6-1.0) mg/dL Est Cr Clr Drug Dosing TNP Estimated GFR (MDRD) > 60.0 ml/min Glucose 81 (74-106) mg/dL Uric Acid 2.5 L (2.6-7.2) mg/dL Calcium 8.3 L (8.5-10.1) mg/dL Total Bilirubin 0.2 (0.2-1.0) mg/dL AST 31 (15-37) IU/L ALT 26 (14-63) IU/L Alkaline Phosphatase 97 (46-116) U/L Total Protein 5.4 L (6.4-8.2) g/dL Albumin 2.3 L (3.4-5.0) g/dL Globulin 3.1 (2.0-3.5) g/dL Albumin/Globulin Ratio 0.7 L (1.3-2.8) Urine Color YELLOW Urine Appearance CLEAR Urine pH 6.5 (5.0-8.0) Ur Specific [place] <= 1.005 (1.001-1.035) Urine Protein NEGATIVE (NEGATIVE) mg/dL Urine Glucose (UA) NEGATIVE (NEGATIVE) mg/dL Urine Ketones NEGATIVE (NEGATIVE) mg/dL Urine Occult Blood NEGATIVE (NEGATIVE) Urine Nitrite NEGATIVE (NEGATIVE) Urine Bilirubin NEGATIVE (NEGATIVE) Urine Urobilinogen 0.2 (<2.0) EU/dL Ur Leukocyte Esterase NEGATIVE (NEGATIVE) Med Orders - Current: Current Medications Ibuprofen (Motrin) 800 mg PO Q6H PRN PRN Reason: Abdominal Pain Last Admin: 12/21/17 15:00 Dose: 800 mg Labetalol HCl (Normodyne) 100 mg PO BID ANGIE Last Admin: 12/21/17 10:12 Dose: Not Given Oxycodone/Acetaminophen (Percocet 325-5 Mg) 1 - 2 tab PO Q4H PRN PRN Reason: Abdominal Pain Last Admin: 12/21/17 16:53 Dose: 1 tab Discontinued Medications Emollient Ointment (Lansinoh Hpa) Confirm Administered Dose 7 gm .ROUTE .STK- MED ONE Stop: 12/21/17 11:31 - Exam Wound/Incisions: Healing Well, No Drainage. No: Erythema General: Alert, Oriented Lungs: Normal Respiratory Effort Cardiovascular: Regular Rate, Regular Rhythm GI/Abdominal Exam: Normal Bowel Sounds, Soft Extremities: Pedal Edema (1+). No: Eladio's Sign Skin: Warm, Dry, Intact Psy/Mental Status: Alert - Problem List & Annotations (1) Pre-eclampsia, SNOMED Code(s): 812066896, [id number] Code(s): O14.95 - UNSPECIFIED PRE-ECLAMPSIA, COMPLICATING THE PUERPERIUM Status: Acute Current Visit: Yes - Problem List Review Problem List Initiated/Reviewed/Updated: Yes - My Orders Last 24 Hours: Active Orders 24 hr Category Date Time Status Patient Status [ADT] Routine ADT 12/21/17 08:12 Active Antiembolic Devices [RC] .Routine Care 12/21/17 08:14 Active Up ad Jenny [RC] ASDIRECTED Care 12/21/17 08:12 Active VTE/DVT Education [RC] PER UNIT ROUTINE Care 12/21/17 08:14 Active Vital Signs [RC] ASDIRECTED Care 12/21/17 08:12 Active Regular Diet [DIET] Diet 12/21/17 Breakfast Active Acetaminophen/oxyCODONE [Percocet 325-5 MG] Med 12/21/17 08:18 Active 1 - 2 tab PO Q4H PRN Ibuprofen [Motrin] Med 12/21/17 08:19 Active 800 mg PO Q6H PRN Labetalol [Normodyne] Med 12/21/17 08:16 Active 100 mg PO BID DVT/VTE Prophylaxis Reflex [OM.PC] Routine Oth 12/21/17 08:12 Ordered SCD [Sequential Compression Device] [OM.PC] Routine Oth 12/21/17 08:59 Ordered Medication Orders Ibuprofen (Motrin) 800 mg PO Q6H PRN PRN Reason: Abdominal Pain Last Admin: 12/21/17 15:00 Dose: 800 mg Labetalol HCl (Normodyne) 100 mg PO BID ANGIE Last Admin: 12/21/17 10:12 Dose: Admin: 12/21/17 08:23 Dose: 100 mg Oxycodone/Acetaminophen (Percocet 325-5 Mg) 1 - 2 tab PO Q4H PRN PRN Reason: Abdominal Pain Last Admin: 12/21/17 16:53 Dose: 1 tab Admin: 12/21/17 15:01 Dose: 1 tab Admin: 12/21/17 10:16 Dose: 2 tab - Assessment Assessment (Free Text/Narrative):: Preeclampsia POD 3 c section, repeat - Plan Plan (Free Text/Narrative):: With oral labetalol, BPs are stabilizing nicely in the 130/70s range. Pain remains controlled with increased dose of percocet. Urine output is adequate. Will continue to monitor BPs. If remain stable, anticipate discharge in am with close follow up in clinic.
[2017-12-22] MEDS: Acetaminophen/oxyCODONE 325-5 MG Tab PO PRN ×2 (01:10→06:23)
[2017-12-22] MEDS: Ibuprofen 800 MG Tab PO PRN ×2 (03:13→09:01)
--- NOTE | 2017-12-22 08:08 | PCM.SURGPN ---
- General Info Date of Service: 12/22/17 POD#: 4 Admission Diagnosis/Problem: Preeclampsia in period Functional Status: Reports: Pain Controlled, Tolerating Diet, Ambulating, Urinating - Review of Systems General: Denies: Fever, Weakness Pulmonary: Reports: Cough. Denies: Shortness of Breath Cardiovascular: Denies: Chest Pain, Palpitations, Lightheadedness Gastrointestinal: Reports: Flatus. Denies: Nausea, Vomiting Genitourinary: Denies: Flank Pain Neurological: Denies: Dizziness, Headache - Patient Data Vitals - Most Recent: Last Vital Signs Temp 36.7 C 12/22/17 03:26 Pulse 87 12/22/17 03:26 Resp 16 12/22/17 03:26 BP 147/77 H 12/22/17 03:26 Pulse Ox 98 12/22/17 03:26 Lab Results Last 24 Hrs: Laboratory Results - last 24 hr 12/21/17 12/21/17 12/21/17 Range/Units 08:33 08:33 11:25 WBC 7.27 (4.0-11.0) K/uL RBC 3.33 L (4.30-5.90) M/uL Hgb 9.4 L (12.0-16.0) g/dL Hct 28.0 L (36.0-46.0) % MCV 84.1 (80.0-98.0) fL MCH 28.2 (27.0-32.0) pg MCHC 33.6 (31.0-37.0) g/dL RDW Std Deviation 44.1 (28.0-62.0) fl RDW Coeff of Cassie 14 (11.0-15.0) % Plt Count 238 (150-400) K/uL MPV 9.30 (7.40-12.00) fL Nucleated RBC % 0.0 /100WBC Nucleated RBCs # 0 K/uL Sodium 136 (136-145) mmol/L Potassium 3.7 (3.5-5.1) mmol/L Chloride 101 (98-107) mmol/L Carbon Dioxide 25.4 (21.0-32.0) mmol/L BUN 7 (7.0-18.0) mg/dL Creatinine 0.5 L (0.6-1.0) mg/dL Est Cr Clr Drug Dosing TNP Estimated GFR (MDRD) > 60.0 ml/min Glucose 81 (74-106) mg/dL Uric Acid 2.5 L (2.6-7.2) mg/dL Calcium 8.3 L (8.5-10.1) mg/dL Total Bilirubin 0.2 (0.2-1.0) mg/dL AST 31 (15-37) IU/L ALT 26 (14-63) IU/L Alkaline Phosphatase 97 (46-116) U/L Total Protein 5.4 L (6.4-8.2) g/dL Albumin 2.3 L (3.4-5.0) g/dL Globulin 3.1 (2.0-3.5) g/dL Albumin/Globulin Ratio 0.7 L (1.3-2.8) Urine Color YELLOW Urine Appearance CLEAR Urine pH 6.5 (5.0-8.0) Ur Specific [place] <= 1.005 (1.001-1.035) Urine Protein NEGATIVE (NEGATIVE) mg/dL Urine Glucose (UA) NEGATIVE (NEGATIVE) mg/dL Urine Ketones NEGATIVE (NEGATIVE) mg/dL Urine Occult Blood NEGATIVE (NEGATIVE) Urine Nitrite NEGATIVE (NEGATIVE) Urine Bilirubin NEGATIVE (NEGATIVE) Urine Urobilinogen 0.2 (<2.0) EU/dL Ur Leukocyte Esterase NEGATIVE (NEGATIVE) Med Orders - Current: Current Medications Ibuprofen (Motrin) 800 mg PO Q6H PRN PRN Reason: Abdominal Pain Last Admin: 12/22/17 03:13 Dose: 800 mg Labetalol HCl (Normodyne) 100 mg PO BID ANGIE Last Admin: 12/21/17 21:10 Dose: 100 mg Oxycodone/Acetaminophen (Percocet 325-5 Mg) 1 - 2 tab PO Q4H PRN PRN Reason: Abdominal Pain Last Admin: 12/22/17 06:23 Dose: 2 tab Discontinued Medications Emollient Ointment (Lansinoh Hpa) Confirm Administered Dose 7 gm .ROUTE .STK- MED ONE Stop: 12/21/17 11:31 - Exam Wound/Incisions: No Drainage, Other (stable ecchymosis along the mons). No: Erythema General: Alert, Oriented Lungs: Normal Respiratory Effort Cardiovascular: Regular Rate, Regular Rhythm GI/Abdominal Exam: Normal Bowel Sounds, Soft Extremities: Pedal Edema (1+). No: Eladio's Sign Skin: Warm, Dry, Intact Psy/Mental Status: Alert, Normal Affect - Problem List & Annotations (1) Pre-eclampsia, SNOMED Code(s): 136382967, 651901823 Code(s): O14.95 - UNSPECIFIED PRE-ECLAMPSIA, COMPLICATING THE PUERPERIUM Status: Acute Current Visit: Yes - Problem List Review Problem List Initiated/Reviewed/Updated: Yes - My Orders Last 24 Hours: Active Orders 24 hr Category Date Time Status Patient Status [ADT] Routine ADT 12/21/17 08:12 Active Antiembolic Devices [RC] .Routine Care 12/21/17 08:14 Active Ready for Discharge [RC] PER UNIT ROUTINE Care 12/22/17 08:03 Ordered Up ad Jenny [RC] ASDIRECTED Care 12/21/17 08:12 Active VTE/DVT Education [RC] PER UNIT ROUTINE Care 12/21/17 08:14 Active Vital Signs [RC] ASDIRECTED Care 12/21/17 08:12 Active Acetaminophen/oxyCODONE [Percocet 325-5 MG] Med 12/21/17 08:18 Active 1 - 2 tab PO Q4H PRN Ibuprofen [Motrin] Med 12/21/17 08:19 Active 800 mg PO Q6H PRN Labetalol [Normodyne] Med 12/21/17 08:16 Active 100 mg PO BID DVT/VTE Prophylaxis Reflex [OM.PC] Routine Oth 12/21/17 08:12 Ordered SCD [Sequential Compression Device] [OM.PC] Routine Oth 12/21/17 08:59 Ordered Medication Orders Ibuprofen (Motrin) 800 mg PO Q6H PRN PRN Reason: Abdominal Pain Last Admin: 12/22/17 03:13 Dose: 800 mg Admin: 12/21/17 21:14 Dose: 800 mg Admin: 12/21/17 15:00 Dose: 800 mg Labetalol HCl (Normodyne) 100 mg PO BID ANGIE Last Admin: 12/21/17 21:10 Dose: 100 mg Admin: 12/21/17 10:12 Dose: Admin: 12/21/17 08:23 Dose: 100 mg Oxycodone/Acetaminophen (Percocet 325-5 Mg) 1 - 2 tab PO Q4H PRN PRN Reason: Abdominal Pain Last Admin: 12/22/17 06:23 Dose: 2 tab Admin: 12/22/17 01:10 Dose: 2 tab Admin: 12/21/17 20:05 Dose: 2 tab Admin: 12/21/17 16:53 Dose: 1 tab Admin: 12/21/17 15:01 Dose: 1 tab Admin: 12/21/17 10:16 Dose: 2 tab - Assessment Assessment (Free Text/Narrative):: Preeclampsia, BPs stable on oral labetalol - Plan Plan (Free Text/Narrative):: Patient did not sleep well due to nursing baby, but she denies headache or visual changes. She feels ready to go home with oral antihypertensive. She has help at home with and mother in law. Discussed appropriate way to wean narcotics. She is still coughing despite zithromax treatment--she has been coughing for 3+ weeks. Will trial augmentin regimen with cough syrup.
[2017-12-22] MEDS: Labetalol 100 MG Tab PO SCH (09:01)
== END 2017-12-22 10:31 | disposition home or self-care (01) ==
LOC: MW.OB 07:31
PROVIDERS: ADMIT Obstetrics & Gynecology; ATTEND Obstetrics & Gynecology
DX: O14.95 Unspecified pre-eclampsia, complicating the puerperium (principal); E78.00 Pure hypercholesterolemia, unspecified; Z91.09 Other allergy status, other than to drugs and biological substances; Z79.899 Other long term (current) drug therapy
CPT/HCPCS: 36415; 51701; 80053; 81003; 84550; 85027; A9270; G0378